=== PATIENT | male | born 1960 | race Caucasian/White ===

== ENCOUNTER 2022-09-29 17:41 | Emergency (ER) | payer BC, OTHER ==
[~2022-09-29] VITALS: Ht 177.8 cm; Wt 147.4 kg
[2022-09-29 18:16] LABS: BILIRUBIN,URINE NEGATIVE (NEGATIVE); CLARITY,URINE CLEAR; COLOR,URINE YELLOW; GLUCOSE, URINE (UA) 3+ (NEGATIVE); KETONES,URINE NEGATIVE (NEGATIVE); LEUKOCYTE ESTERASE ,URINE NEGATIVE (NEGATIVE); NITRITE,URINE NEGATIVE (NEGATIVE); PH,URINE 6.5 (5-9); PROTEIN,URINE NEGATIVE (NEGATIVE)
[2022-09-29 18:23] LABS: BACTERIA,URINE NEGATIVE /HPF; SQUAMOUS EPITHELIAL CELL,UR RARE /HPF
--- NOTE | 2022-09-29 18:24 | ED Back Pain ---
General Chief Complaint: Back Problems Stated Complaint: RIGHT SIDE BACK PAIN Nursing Triage Note: PT AMBULATE TO ROOM 05 WITHOUT DIFFICULTY WITH C/O RIGHT FLANK PAIN "FOR WEEKS" THAT STARTED GETTING WORSE LAST THURSDAY. PT REPORTS BEING SEEN AT PSYCHIATRIC ON THURSDAY AND AND A UA SHOWED PT HAS STAPH IN URINE AND STARTED ON ABX. PT REPORTS RETURNING TO PSYCHIATRIC TODAY AND WAS TOLD THAT THEY DID NOT HAVE RADIOLOGY TODAY AND TOLD TO COME TO ED. PT STATES THE ABX PRESCRIPTION WAS SENT TO PHARMACY YESTERDAY AND THAT HE PICKED UP THE ABX TODAY. Source of Information: Patient Exam Limitations: No Limitations History of Present Illness Date Seen by Provider: Sep 29, 2022 Time Seen by Provider: 18:10 Initial Comments 61-year-old male presents to the ER with complaints of right flank pain which wraps around to right mid abdomen. He states the pain got worse on Thursday, he went to PSYCHIATRIC who checked his urine and found him to have a urinary tract infection. They started him on cephalexin. He took his first dose today. He also states that some movements make the pain worse. He states that he has had pain with with urination intermittently for "forever." Reports the pain is sometimes a burning pain. Reports some nausea, no vomiting. Denies fevers and hematuria. Past medical history includes diabetes, currently takes metformin. Allergies and Home Medications Allergies Coded Allergies: No Known Drug Allergies (Unverified , 09/29/22) Patient Home Medication List Home Medication List Reviewed: Yes Review of Systems Constitutional: see HPI Past Oyivryc-Vosvsj-Bmnaas Hx Patient Social History Tobacco Use?: No Smoking Status: Never a Smoker Smokeless Tobacco Frequency: Never a User Use of E-Cig and/or Vaping dev: No Substance use?: No Alcohol Use?: No Pt feels they are or have been: No Physical Exam Vital Signs Vital Signs - First Documented 09/29/22 17:52 Temp 36.8 Pulse 83 Resp 17 B/P (MAP) 218/112 (147) O2 Delivery Room Air Capillary Refill : Less Than 3 Seconds Height, Weight, BMI Height: '" Weight: lbs. oz. kg; 46.00 BMI Method: General Appearance: No Apparent Distress, WD/WN Neck: Non Tender, Supple Cardiovascular: Regular Rate, Rhythm Respiratory: Lungs Clear, Normal Breath Sounds, No Accessory Muscle Use, No Respiratory Distress Gastrointestinal: Non Tender, Soft Back: No CVA Tenderness, Other (Pain with palpation of left mid back) Extremity: Normal Inspection Neurologic/Psychiatric: Alert, Normal Mood/Affect Skin: Normal Color, Warm/Dry Progress/Results/Core Measures Results/Orders Lab Results Laboratory Tests Test 09/29/22 17:54 09/29/22 18:27 09/29/22 20:10 Range/Units Urine Color YELLOW Urine Clarity CLEAR Urine pH 6.5 5-9 Urine Specific [place] 1.010 L 1.016-1.022 Urine Protein NEGATIVE NEGATIVE Urine Glucose (UA) 3+ H NEGATIVE Urine Ketones NEGATIVE NEGATIVE Urine Nitrite NEGATIVE NEGATIVE Urine Bilirubin NEGATIVE NEGATIVE Urine Urobilinogen 0.2 < = 1.0 MG/DL Urine Leukocyte Esterase NEGATIVE NEGATIVE Urine RBC (Auto) TRACE-I H NEGATIVE Urine RBC NONE /HPF Urine WBC NONE /HPF Urine Squamous Epithelial Cells RARE /HPF Urine Crystals NONE /LPF Urine Bacteria NEGATIVE /HPF Urine Casts NONE /LPF Urine Mucus NEGATIVE /LPF Urine Culture Indicated NO White Blood Count 8.9 4.3-11.0 10^3/uL Red Blood Count 5.11 4.30-5.52 10^6/uL Hemoglobin 15.4 13.3-17.7 g/dL Hematocrit 46 40-54 % Mean Corpuscular Volume 89 80-99 fL Mean Corpuscular Hemoglobin 30 25-34 pg Mean Corpuscular Hemoglobin Concent 34 32-36 g/dL Red Cell Distribution Width 12.9 10.0-14.5 % Platelet Count 267 130-400 10^3/uL Mean Platelet Volume 10.4 9.0-12.2 fL Immature Granulocyte % (Auto) 0 % Neutrophils (%) (Auto) 58 42-75 % Lymphocytes (%) (Auto) 29 12-44 % Monocytes (%) (Auto) 7 0-12 % Eosinophils (%) (Auto) 5 0-10 % Basophils (%) (Auto) 0 0-10 % Neutrophils # (Auto) 5.2 1.8-7.8 10^3/uL Lymphocytes # (Auto) 2.6 1.0-4.0 10^3/uL Monocytes # (Auto) 0.7 0.0-1.0 10^3/uL Eosinophils # (Auto) 0.4 H 0.0-0.3 10^3/uL Basophils # (Auto) 0.0 0.0-0.1 10^3/uL Immature Granulocyte # (Auto) 0.0 0.0-0.1 10^3/uL Sodium Level 137 135-145 MMOL/L Potassium Level 4.2 3.6-5.0 MMOL/L Chloride Level 100 98-107 MMOL/L Carbon Dioxide Level 24 21-32 MMOL/L Anion Gap 13 5-14 MMOL/L Blood Urea Nitrogen 14 7-18 MG/DL Creatinine 0.99 0.60-1.30 MG/DL Estimat Glomerular Filtration Rate 88 BUN/Creatinine Ratio 14 Glucose Level 397 H 70-105 MG/DL Calcium Level 9.6 8.5-10.1 MG/DL Corrected Calcium 9.7 8.5-10.1 MG/DL Total Bilirubin 0.2 0.1-1.0 MG/DL Aspartate Amino Transf (AST/SGOT) 14 5-34 U/L Alanine Aminotransferase (ALT/SGPT) 22 0-55 U/L Alkaline Phosphatase 136 40-136 U/L Total Protein 8.1 6.4-8.2 GM/DL Albumin 3.9 3.2-4.5 GM/DL Amylase Level 69 25-125 U/L Lipase 30 8-78 U/L Glucometer 363 H 70-110 MG/DL My Orders Orders - YOBANY BUTTERFIELD APRN Urinalysis (09/29/22 18:09) Comprehensive Metabolic Panel (09/29/22 18:17) Lipase (09/29/22 18:17) Amylase (09/29/22 18:17) Ed Iv/Invasive Line Start (09/29/22 18:17) Cbc With Automated Diff (09/29/22 18:17) Ct Abd/Pelvis Wo(Kidney Stone) (09/29/22 18:17) Ketorolac Injection (Toradol Injection) (09/29/22 18:30) Ondansetron Injection (Zofran Injectio (09/29/22 18:30) Ns Iv 1000 Ml (Sodium Chloride 0.9%) (09/29/22 19:00) Medications Given in ED Current Medications Medications Dose Ordered Sig/Naren Route Start Time Stop Time Status Last Admin Dose Admin Ketorolac Tromethamine 15 mg ONCE ONCE IVP 09/29/22 18:30 09/29/22 18:31 DC 09/29/22 18:29 15 MG Ondansetron HCl 4 mg ONCE ONCE IVP 09/29/22 18:30 09/29/22 18:31 DC 09/29/22 18:28 4 MG Vital Signs/I&O 09/29/22 17:52 Temp 36.8 Pulse 83 Resp 17 B/P (MAP) 218/112 (147) O2 Delivery Room Air Blood Pressure Mean: 147 Progress Progress Note : Progress Note Patient seen and evaluated, sitting comfortably on side of bed, no acute distress. Based on exam and symptoms, differential diagnosis includes but is not limited to pyelonephritis, nephrolithiasis, musculoskeletal pain. Work-up initiated including CBC, CMP, amylase, lipase, CT abdomen pelvis without. Toradol and Zofran ordered. 1919 labs reviewed. CBC grossly normal. CMP grossly normal, glucose elevated 397. No concern for diabetic ketoacidosis. IV fluids ordered for elevated blood sugar. Amylase and lipase normal. Urinalysis shows 3+ glucose, trace RBCs. Negative for nitrites, leukocytes, WBCs, and bacteria. CT reviewed. No acute abnormalities in the abdomen or pelvis. Hepatic stenosis noted. Fat- containing midline ventral hernia also noted. Results discussed with patient. IV fluids are still infusing at this time. Will recheck blood sugar after IV fluids are completed. 2014 blood sugar after IV fluids was 363. Patient instructed to follow-up with his primary regarding his elevated blood sugar and elevated blood pressure. He has an appointment on October 17. Patient agreeable to discharge plan. Discharge instructions and return precautions provided. Diagnostic Imaging Diagonstic Imaging: CT Plain Films/CT/US/NM/MRI: abdomen, pelvis Comments [facility], [place] NAME: LYNNETONIO Dudley [facility] REC#: [id number] PT STATUS: REG ER : 1960 PHYSICIAN: YOBANY BUTTERFIELD APRN ADMIT DATE: 09/29/22/ER Signed Date of Exam:09/29/22 CT ABD/PELVIS WO(KIDNEY STONE) PROCEDURE: CT urinary tract, rule out kidney stone. TECHNIQUE: Multiple contiguous axial images were obtained through the abdomen and pelvis without the use of intravenous contrast. Auto Exposure Controls were utilized during the CT exam to meet ALARA standards for radiation dose reduction. INDICATION: Right flank pain. COMPARISON: None FINDINGS: Included portions of the lung bases are clear. CT ABDOMEN: Appendix is surgically absent. Small bowel loops are nondilated. The kidneys, adrenal glands, spleen, and pancreas have an unremarkable noncontrast CT appearance. Hepatic parenchyma is hypodense consistent with hepatic steatosis. No suspicious hepatic masses are seen on this noncontrast study. There is no loculated fluid collection, free fluid or free air within the abdomen. No abnormal mesenteric or retroperitoneal adenopathy is seen. Fat-containing supraumbilical ventral hernia is identified. Ostia measures 1.7 cm in diameter. Osseous structures show no acute abnormalities. CT PELVIS: Urinary bladder is unopacified. No calculi are seen within the urinary bladder. There is no loculated fluid collection, free fluid, nor free air. No abnormal lymph nodes are seen. Osseous structures show no acute abnormalities. IMPRESSION: 1. No acute abnormalities seen within the abdomen or pelvis. 2. Hepatic steatosis. 3. Fat-containing midline ventral hernia Dictated by: Dictated on workstation # [id number] Dict: 09/29/221857 Trans: 09/29/221946 [facility] [id number] Interpreted by: BETH ANDREWS MD Electronically signed by: BETH ANDREWS MD 09/29/221946 Departure Impression Primary Impression: Back pain Qualified Codes: M54.6 - Pain in thoracic spine Disposition: 01 HOME, SELF-CARE Condition: Stable Departure-Patient Inst. Decision time for Depature: 20:15 Referrals: NO,LOCAL PHYSICIAN (PCP/Family) Primary Care Physician Patient Instructions: Low Back Pain (DC) Add. Discharge Instructions: Your CT was negative for kidney stone. Continue taking your antibiotic as prescribed. This pain is likely musculoskeletal. You may take 800 mg of ibuprofen every 8 hours with food as needed for pain. You may also take 1000 mg of Tylenol every 8 hours as needed for pain. Follow-up with your primary care provider as scheduled, discuss your elevated blood sugar and elevated blood pressure. Also follow-up with primary care provider if this pain continues. Return for severe pain, inability to walk, numbness or tingling in your legs, bowel or bladder incontinence, or any other new, concerning, or worsening symptoms. All discharge instructions reviewed with patient and/or family. Voiced understanding. YOBANY BUTTERFIELD APRN Sep 29, 2022 18:24
[2022-09-29] MEDS ORDERED: ONDANSETRON 4 MG/2 ML (SDV) Z0FRAN IVP ONE (18:30)
[2022-09-29] MEDS ORDERED: KETOROLAC 15 MG/ML VIAL IVP ONE (18:30)
[2022-09-29 18:37] LABS: BASOPHILS % (AUTO) 0 % (0-10); EOSINOPHILS # (AUTO) 0.4 10^3/uL (0.0-0.3); EOSINOPHILS % (AUTO) 5 % (0-10); HEMATOCRIT 46 % (40-54); HEMOGLOBIN 15.4 g/dL (13.3-17.7); LYMPHOCYTES # (AUTO) 2.6 10^3/uL (1.0-4.0); LYMPHOCYTES % (AUTO) 29 % (12-44); MEAN CORPUSCULAR HEMOGLOBIN 30 pg (25-34); MEAN CORPUSCULAR HGB CONC 34 g/dL (32-36); MEAN CORPUSCULAR VOLUME 89 fL (80-99); MEAN PLATELET VOLUME 10.4 fL (9.0-12.2); MONOCYTES # (AUTO) 0.7 10^3/uL (0.0-1.0); MONOCYTES % (AUTO) 7 % (0-12); NEUTROPHILS # (AUTO) 5.2 10^3/uL (1.8-7.8); NEUTROPHILS % (AUTO) 58 % (42-75); PLATELET COUNT 267 10^3/uL (130-400); WHITE BLOOD COUNT 8.9 10^3/uL (4.3-11.0)
[2022-09-29 18:44] LABS: ALBUMIN 3.9 GM/DL (3.2-4.5); POTASSIUM 4.2 MMOL/L (3.6-5.0)
[2022-09-29 18:45] LABS: CALCIUM 9.6 MG/DL (8.5-10.1)
[2022-09-29 18:47] LABS: TOTAL PROTEIN 8.1 GM/DL (6.4-8.2)
[2022-09-29 18:49] LABS: BILIRUBIN,TOTAL 0.2 MG/DL (0.1-1.0)
[2022-09-29 18:50] LABS: CREATININE SERUM 0.99 MG/DL (0.60-1.30)
[2022-09-29] MEDS ORDERED: NS IV 1000 ML 1,000 ML IV SCH (19:00)
--- NOTE | 2022-09-29 19:06 | Diagnostic Imaging Report ---
PROCEDURE: CT urinary tract, rule out kidney stone. TECHNIQUE: Multiple contiguous axial images were obtained through the abdomen and pelvis without the use of intravenous contrast. Auto Exposure Controls were utilized during the CT exam to meet ALARA standards for radiation dose reduction. INDICATION: Right flank pain. COMPARISON: None FINDINGS: Included portions of the lung bases are clear. CT ABDOMEN: Appendix is surgically absent. Small bowel loops are nondilated. The kidneys, adrenal glands, spleen, and pancreas have an unremarkable noncontrast CT appearance. Hepatic parenchyma is hypodense consistent with hepatic steatosis. No suspicious hepatic masses are seen on this noncontrast study. There is no loculated fluid collection, free fluid or free air within the abdomen. No abnormal mesenteric or retroperitoneal adenopathy is seen. Fat-containing supraumbilical ventral hernia is identified. Ostia measures 1.7 cm in diameter. Osseous structures show no acute abnormalities. CT PELVIS: Urinary bladder is unopacified. No calculi are seen within the urinary bladder. There is no loculated fluid collection, free fluid, nor free air. No abnormal lymph nodes are seen. Osseous structures show no acute abnormalities. IMPRESSION: 1. No acute abnormalities seen within the abdomen or pelvis. 2. Hepatic steatosis. 3. Fat-containing midline ventral hernia Dictated by: Dictated on workstation # [id number]
[2022-09-29 20:23] VITALS: BP 171/90
== END 2022-09-29 20:23 | disposition home or self-care (01) ==
LOC: ER 17:43
DX: M54.9 Dorsalgia, unspecified (principal); K76.0 Fatty (change of) liver, not elsewhere classified; K43.9 Ventral hernia without obstruction or gangrene; N39.0 Urinary tract infection, site not specified; E11.9 Type 2 diabetes mellitus without complications; Z79.84 Long term (current) use of oral hypoglycemic drugs; Z28.310 Unvaccinated for COVID-19
CPT/HCPCS: 36415; 74176; 80053; 81000; 82150; 82947; 83690; 85025

== ENCOUNTER 2023-02-04 06:05 | Outpatient (CLI) | payer BC ==
[~2023-02-04] VITALS: Ht 177.8 cm; Wt 144.2 kg
[2023-02-06] MEDS ORDERED: SITA100T12 PO (13:13)
[2023-02-06] MEDS ORDERED: SEMA1PEN3 SQ (13:13)
[2023-02-06] MEDS ORDERED: LOSA25TA41 PO (13:13)
== END 2023-02-06 13:40 | disposition home or self-care (01) ==
LOC: PREOP 06:05
PROVIDERS: ATTEND Surgery
DX: Z01.818 Encounter for other preprocedural examination (principal)

== ENCOUNTER 2023-02-17 07:33 | Day surgery (SDC) | payer BC ==
[~2023-02-17] VITALS: Ht 177.8 cm; Wt 144.2 kg
[~2023-02-17 07:33] MED LIST: LOSA25TA41 PO; SEMA1PEN3 SQ; SITA100T12 PO
[2023-02-17] MEDS: LACTATED RINGERS 1,000 ML 1,000 ML IV STA (07:55)
[2023-02-17 08:04] VITALS: BP 142/74
--- NOTE | 2023-02-17 08:23 | Progress Note-Pre Operative ---
Pre-Operative Progress Note Date H&P Reviewed: Feb 17, 2023 Time H&P Reviewed: 08:23 History & Physical: H&P Reviewed, Patient Examed, No changes noted Pre-Operative Diagnosis: screening colonoscopy SANTIAGO BUCHANAN DO Feb 17, 2023 08:23
--- NOTE | 2023-02-17 09:50 | Discharge Inst-Simple/Standard ---
Discharge Inst-Standard Patient Instructions/Follow Up Plan of Care/Instructions/FU: [place] 2 weeks Activity as Tolerated: Yes Discharge Diet: Regular Diet SANTIAGO BUCHANAN DO Feb 17, 2023 09:50
--- NOTE | 2023-02-17 09:50 | Progress Note-Post Operative ---
Post-Operative Progess Note Surgeon (s)/Dental Professional (s) Surgeon SANTIAGO BUCHANAN DO Dental Professional: n/a Pre-Operative Diagnosis screening colonoscopy Post-Operative Diagnosis Cecal polyp Procedure & Operative Findings Date of Procedure 02/17/23 Procedure Performed/Findings Colonoscopy w/ hot bx polypectomy x1 Anesthesia Type per ART INSTALLER Estimated Blood Loss Estimated blood loss (mL): none Specimens/Packing Specimens Removed Cecal polyp SANTIAGO BUCHANAN DO Feb 17, 2023 09:50
[2023-02-17 09:55] VITALS: BP 120/62
[2023-02-17 10:00] VITALS: BP 122/61
[2023-02-17 10:25] VITALS: BP 122/61
--- NOTE | 2023-02-17 12:34 | Anesthesia-General Post-Op ---
MAC Patient Condition Mental Status/LOC: Same as Preop Cardiovascular: Satisfactory Nausea/Vomiting: Absent Respiratory: Satisfactory Pain: Controlled Complications: Absent Post Op Complications Complications None Follow Up Care/Instructions Patient Instructions None needed. Anesthesiology Discharge Order Discharge Order Patient is doing well, no complaints, stable vital signs, no apparent adverse anesthesia problems. No complications reported per nursing. TONJA SAWYER CRNA Feb 17, 2023 12:34
--- NOTE | 2023-02-17 16:23 | OPERATIVE REPORT ---
DATE OF SERVICE: 02/17/2023 PREOPERATIVE DIAGNOSIS: Screening colonoscopy. POSTOPERATIVE DIAGNOSIS: Cecal polyp. PROCEDURE: Colonoscopy with hot biopsy polypectomy x1. SURGEON: Santiago Grimes DO ANESTHESIA: Per TILE SETTER SUPERVISOR. ESTIMATED BLOOD LOSS: None. COMPLICATIONS: None. INDICATIONS: The patient is a 62-year-old male, needing screening colonoscopy. He understands risks and benefits of procedure and wishes to proceed. Consent was signed in chart. DESCRIPTION OF PROCEDURE: The patient was taken to endoscopy suite, placed in left lateral recumbent position. Timeout was performed. Digital rectal exam was performed. No palpable polyps, masses or ulcerations. Scope was inserted in the rectum, advanced all the way to the cecum with minimal difficulty. Prep was adequate. Scope was then slowly retracted back. A small polyp in the cecum, which hot biopsy polypectomy was performed. Scope was then continuously retracted back. No polyps, masses or ulcerations within the ascending, transverse, descending and sigmoid colon. Once in the rectum, scope was retroflexed noting no other pathology. Scope was returned to its normal position, slowly withdrawn until completely removed. The patient tolerated the procedure well, no complications, taken to recovery room in stable condition. RECOMMENDATIONS: The patient will follow up on pathology in 2 weeks. Recommend repeat colonoscopy in 5 years. Any issues before that, be seen at that time. Job ID: [id number] DocumentID: [id number] Dictated Date: 02/17/2023 09:50:38 Design Agent Date: 02/17/2023 16:21:00 Dictated By: SANTIAGO GRIMES DO
== END 2023-02-17 10:25 | disposition home or self-care (01) ==
LOC: ENDO 07:33
PROVIDERS: ATTEND Surgery
DX: Z12.11 Encounter for screening for malignant neoplasm of colon (principal); K63.5 Polyp of colon; K43.2 Incisional hernia without obstruction or gangrene; G47.33 Obstructive sleep apnea (adult) (pediatric); E11.9 Type 2 diabetes mellitus without complications; E66.9 Obesity, unspecified; Z79.84 Long term (current) use of oral hypoglycemic drugs; Z68.42 Body mass index [BMI] 45.0-49.9, adult